=== PATIENT | female | born 1980 | race Caucasian/White ===

== ENCOUNTER 2016-11-09 11:34 | Emergency (ER) | payer OTHER ==
[~2016-11-09] VITALS: Ht 160 cm; Wt 65.9 kg
[2016-11-09] MEDS ORDERED: IBUPROFEN 200 MG TABLET ONE (12:12)
[2016-11-09] MEDS ORDERED: IBUPROFEN 200 MG TABLET PO ONE (12:30)
[2016-11-09 13:21] VITALS: BP 127/80
== END 2016-11-09 13:23 | disposition home or self-care (01) ==
LOC: ED 13:04
DX: S93.432A Sprain of tibiofibular ligament of left ankle, initial encounter (principal); W17.89XA Other fall from one level to another, initial encounter; Y93.B9 Activity, other involving muscle strengthening exercises; Y92.39 Other specified sports and athletic area as the place of occurrence of the external cause; Y99.8 Other external cause status
CPT/HCPCS: 99284